=== PATIENT | female | born 1955 | race Caucasian/White ===

== ENCOUNTER 2018-04-13 18:52 | Emergency (ER) | payer OTHER ==
[~2018-04-13] VITALS: Ht 180.3 cm; Wt 72.1 kg
[~2018-04-13 18:52] MED LIST: ALEVE220 MG PO; AMBIEN5 MG PO; AMOXIL500 MG PO; ESTRACE 0.01%42.5 GM V; ESTRACE1 M1 PO; LEVOFLOXACIN500 MG PO; LEVOTHYROXINE0.1 MG PO; MIRALAX17 GM/DOSE PO; PERCOCET 325 MG1 TA2 PO; SENNA LAX8.6 MG PO; SYNTHROID,LEVO88 MCG PO
[2018-04-13] MEDS ORDERED: PREDNISONE20 M1 PO (20:26)
[2018-04-13] MEDS ORDERED: ZITHROMAX250 MG PO (20:26)
== END 2018-04-13 20:38 | disposition home or self-care (01) ==
LOC: ED 18:52
DX: J20.9 Acute bronchitis, unspecified (principal); Z90.710 Acquired absence of both cervix and uterus; Z79.899 Other long term (current) drug therapy

== ENCOUNTER → 2018-10-18 | Outpatient (CLI) | payer OTHER ==
[~2018-10-18] MED LIST changes: +MILLIPRED5 MG PO; +Motrin,Rufen800 MG PO; +PREDNISONE20 M1 PO; +ZITHROMAX250 MG PO
== END | disposition home or self-care (01) ==
LOC: RAD 07:36
DX: M47.896 Other spondylosis, lumbar region (principal); M51.26 Other intervertebral disc displacement, lumbar region

== ENCOUNTER → 2019-04-25 | Day surgery (SDC) | payer OTHER ==
[~2019-04-25] VITALS: Ht 180.3 cm; Wt 81.2 kg
--- NOTE | ~2019-04-25 | PROC NOTE ---
[place], [place] PROCEDURE NOTE [id number] UNIT #: [id number] ROOM: DOCTOR: SRINATH HAMM MD BIRTHDATE: [birth year] DOS: 04/25/2019 PREOPERATIVE DIAGNOSIS: Screening examination. POSTOPERATIVE DIAGNOSIS: Normal colon. PROCEDURE: Colonoscopy. ENDOSCOPIST: Srinath Hamm MD. WET WHEELER: HECTOR. ANESTHESIA: MAC. INDICATIONS: This is a 63-year-old female with a history of previous colitis and the last colonoscopy, which was approximately 10 years ago, who is here for a screening examination. The procedure and its complications were explained to the patient in detail preoperatively. Complications that were discussed included but were not limited to bleeding, colon perforation, and missed lesions. She agreed to proceed. DESCRIPTION OF PROCEDURE: After identifying the patient, the patient was brought to the endoscopy suite and placed in the left lateral position. After IV sedation was administered, a timeout procedure was called and a digital rectal exam was performed. This was within normal limits. An adult colonoscope was now introduced into the anal canal and advanced sequentially into the rectum, sigmoid colon, descending colon, transverse colon, ascending colon up to the cecum. Upon reaching the cecum, the scope was withdrawn. Total withdrawal time was approximately 7 minutes and 30 seconds. There were no obvious lesions in visualizing the entirety of the colon except for mild sigmoid diverticulosis. Upon withdrawal of the scope, the patient was brought back to the recovery room in stable fashion. There were no complications. Dr. Srinath Hamm, the attending surgeon, was present throughout the operating case. Based on these findings, the patient is recommended to have another colonoscopy in 10 years or sooner if there are new symptoms that arise. These findings will be discussed with the patient's in the recovery room. Srinath Hamm MD CM:PROCNOTE:PROCEDURE NOTE [id number] SRINATH HAMM MD
[2019-04-25 10:47] VITALS: BP 134/61
[2019-04-25 11:29] VITALS: BP 98/40
[2019-04-25 11:44] VITALS: BP 101/48
[2019-04-25 11:59] VITALS: BP 102/50
== END | disposition home or self-care (01) ==
LOC: SDC 01:35
DX: K59.00 Constipation, unspecified (principal); E03.9 Hypothyroidism, unspecified; Z90.710 Acquired absence of both cervix and uterus; Z80.1 Family history of malignant neoplasm of trachea, bronchus and lung; Z83.3 Family history of diabetes mellitus; Z98.890 Other specified postprocedural states; Z79.899 Other long term (current) drug therapy

== ENCOUNTER → 2019-04-27 | Outpatient (CLI) | payer OTHER | END | disposition home or self-care (01) | LOC: US 04-07 14:30 | DX: N60.02 Solitary cyst of left breast (principal) ==

== ENCOUNTER → 2020-05-17 | Outpatient (CLI) | payer OTHER | END | disposition home or self-care (01) | LOC: RAD 09:01 | PROVIDERS: ATTEND Nurse Practitioner Primary Care | DX: M19.041 Primary osteoarthritis, right hand (principal); M25.562 Pain in left knee; M25.561 Pain in right knee ==

== ENCOUNTER → 2022-07-15 | Outpatient (CLI) | payer OTHER, MEDICARE | END | disposition home or self-care (01) | LOC: US 11:04 | PROVIDERS: ATTEND Nurse Practitioner Primary Care | DX: J44.9 Chronic obstructive pulmonary disease, unspecified (principal); J40 Bronchitis, not specified as acute or chronic; M79.89 Other specified soft tissue disorders ==

== ENCOUNTER → 2022-08-12 | Outpatient (CLI) | payer OTHER, MEDICARE | END | disposition home or self-care (01) | LOC: RAD 10:46 | PROVIDERS: ATTEND Nurse Practitioner Family | DX: M47.812 Spondylosis without myelopathy or radiculopathy, cervical region (principal); M25.78 Osteophyte, vertebrae; M48.02 Spinal stenosis, cervical region; M25.512 Pain in left shoulder; W19.XXXA Unspecified fall, initial encounter ==

== ENCOUNTER → 2022-10-03 | Outpatient (CLI) | payer OTHER | END | disposition home or self-care (01) | LOC: MRI 07:53 | PROVIDERS: ATTEND Nurse Practitioner Primary Care | DX: M43.12 Spondylolisthesis, cervical region (principal); M48.02 Spinal stenosis, cervical region; M25.78 Osteophyte, vertebrae; R93.7 Abnormal findings on diagnostic imaging of other parts of musculoskeletal system ==

== ENCOUNTER → 2023-05-04 | Outpatient (CLI) | payer OTHER | END | disposition home or self-care (01) | LOC: MAMMO 09:30 | PROVIDERS: ATTEND Nurse Practitioner | DX: Z12.31 Encounter for screening mammogram for malignant neoplasm of breast (principal); N64.89 Other specified disorders of breast ==

== ENCOUNTER 2023-05-18 11:24 | Emergency (ER) | payer OTHER ==
[~2023-05-18] VITALS: Ht 180.3 cm; Wt 76.7 kg
[2023-05-18 12:19] LABS: BASO % 0.2 % (0.0-1.0); EOS # 0.3 10*3/uL (0.0-0.4); EOS % 3.5 % (1.0-4.0); HEMATOCRIT 40.4 % (37.0-47.0); LYMPH # 0.6 10*3/uL (1.3-4.4); LYMPH % 6.8 % (27.0-41.0); MEAN CELL VOLUME 90.6 fl (81.0-99.0); MEAN CORPUSCULAR HGB 29.8 pg (27.0-31.0); MEAN CORPUSCULAR HGB CONC 32.9 g/dl (33.0-37.0); MEAN PLATELET VOLUME 10.9 fl (9.6-12.3); MONO # 0.6 10*3/uL (0.1-1.0); MONO % 6.4 % (3.0-9.0); NEUT # 7.2 10*3/uL (2.3-7.9); NEUT % 82.8 % (47.0-73.0); PLATELET COUNT AUTOMATED 189 10*3/uL (130-400); RED BLOOD COUNT 4.46 10*6/uL (4.10-5.10); RED CELL DISTRI WIDTH 13.7 % (0-14.5); WHITE BLOOD COUNT 8.7 10*3/uL (4.8-10.8)
[2023-05-18 12:52] LABS: ALKALINE PHOSPHATASE 142 U/L (46-116); BUN 12 mg/dl (9-23); CHLORIDE 101 mmol/L (98-107); LIPASE 30 U/L (12-53); POTASSIUM 3.7 mmol/L (3.4-5.1); SGPT/ALT 114 U/L (10-49); TOTAL PROTEIN 6.9 gm/dL (6.0-8.0)
[2023-05-18 12:55] LABS: BILIRUBIN 2+ (Negative); BLOOD Negative (Negative); CLARITY Clear (Clear); COLOR Orange (Yellow); GLUCOSE Negative (Negative); KETONE 2+ (Negative); LEUKO ESTERASE 2+ (Negative); NITRITE Positive (Negative); PH 5.5 (4.5-8.0)
[2023-05-18 13:06] LABS: BACTERIA 3+; WBC 21-30 wbc/hpf (0-5)
[2023-05-18 13:07] LABS: HYALINE CAST 0-2; MUCOUS 2+
[2023-05-18] MEDS ORDERED: LEVOFLOXACIN500 MG PO (14:45)
== END 2023-05-18 14:54 | disposition home or self-care (01) ==
LOC: ED 11:24
PROVIDERS: Physician Assistant Medical
DX: N39.0 Urinary tract infection, site not specified (principal); R51.9 Headache, unspecified; Z90.710 Acquired absence of both cervix and uterus; Z98.890 Other specified postprocedural states; Z20.822 Contact with and (suspected) exposure to COVID-19

== ENCOUNTER 2023-06-28 11:59 | Emergency (ER) | payer OTHER ==
[~2023-06-28] VITALS: Ht 180.3 cm; Wt 74.4 kg
[2023-06-28] MEDS ORDERED: TRAMADOL HCL50 MG PO (12:59)
== END 2023-06-28 13:08 | disposition home or self-care (01) ==
LOC: ED 11:59
DX: S70.01XA Contusion of right hip, initial encounter (principal); S00.90XA Unspecified superficial injury of unspecified part of head, initial encounter; Z90.710 Acquired absence of both cervix and uterus; Z98.890 Other specified postprocedural states; W01.198A Fall on same level from slipping, tripping and stumbling with subsequent striking against other object, initial encounter; Y93.89 Activity, other specified; Y92.002 Bathroom of unspecified non-institutional (private) residence as the place of occurrence of the external cause; Y99.8 Other external cause status

== ENCOUNTER → 2024-02-24 | Outpatient (CLI) | payer OTHER ==
[~2024-02-24] MED LIST changes: +TRAMADOL HCL50 MG PO
== END | disposition home or self-care (01) ==
LOC: LAB 11:54 → RAD 11:54
PROVIDERS: ATTEND Nurse Practitioner
DX: M25.561 Pain in right knee (principal); M25.562 Pain in left knee